=== PATIENT | male | born 1990 | race African-American/Black ===

== ENCOUNTER 2017-11-18 11:25 | Emergency (ER) | payer OTHER ==
[2017-11-18] MEDS ORDERED: Ibuprofen 200 MG TAB ONE (14:07)
--- NOTE | 2017-11-18 14:24 | RAD ---
THREE VIEWS OF THE RIGHT SHOULDER: INDICATION: [employer] injury 3 weeks ago now with worsening pain. COMPARISON: None. FINDINGS: The visualized right lung is clear. AC joint and glenohumeral joint are normal-appearing. IMPRESSION: Radiographically normal right shoulder. POS: [facility]
== END 2017-11-18 14:13 | disposition home or self-care (01) ==
LOC: ERS 11:25
DX: M25.511 Pain in right shoulder (principal); W22.8XXA Striking against or struck by other objects, initial encounter

== ENCOUNTER 2017-11-25 12:37 | Outpatient (CLI) | payer OTHER ==
--- NOTE | 2017-11-25 15:24 | MRI ---
RIGHT SHOULDER MRI WITHOUT IV CONTRAST: History: 27-year-old male with history of internal derangement of right shoulder, right shoulder pain since following a jerking type injury. FINDINGS: AC joint arthrosis changes are noted with some minimal subchondral cystic changes with slight down sl oping of the anterior acromion. Supraspinatus and infraspinatus tendons appear unremarkable. Biceps t endon and subscapularis tendons appear unremarkable. There is some focal T2 hyperintense signal withi n the central aspect of the superior labrum, evidence for a slap tear. Rotator cuff muscles are withi n normal limits in signal and volume. IMPRESSION: AC joint arthrosis. Central slap tear. No evidence for a rotator cuff tear. POS: [facility]
== END 2017-11-25 12:38 | disposition home or self-care (01) ==
LOC: SCSMRI 12:37
PROVIDERS: ATTEND Family Medicine
DX: M24.9 Joint derangement, unspecified (principal); M19.011 Primary osteoarthritis, right shoulder